=== PATIENT | female | born 1955 | race Caucasian/White ===

== ENCOUNTER 2022-08-06 18:26 | Inpatient (IN) | payer SELFPAY ==
[~2022-08-06] VITALS: Ht 124.5 cm; Wt 47.6 kg
[2022-08-06 18:45] VITALS: BP 140/71
[2022-08-06] MEDS: ONDANSETRON 4 MG ODT PO ONE (22:14)
[2022-08-06] MEDS: ALUMINUM HYD/MAG/SIMETHICONE 30 ML UDC PO ONE (22:14)
[2022-08-06 22:24] LABS: BASOPHILS % (AUTO) 0.2 % (0.0-2.0); EOSINOPHILS % (AUTO) 0.1 % (0.0-4.0); HEMATOCRIT 36.7 % (36-48); HEMOGLOBIN 13.2 g/dL (12.0-16.0); LYMPHOCYTES % (AUTO) 9.7 % (20.5-51.1); MEAN CORPUSCULAR HEMOGLOBIN 29 pg (27-31); MEAN CORPUSCULAR HGB CONC 36 g/dL (33-37); MEAN CORPUSCULAR VOLUME 79.6 fL (80-94); MONOCYTES # (AUTO) 0.6 K/uL (0.8-1.0); MONOCYTES % (AUTO) 5.6 % (1.7-9.3); NEUTROPHILS # (AUTO) 8.4 K/uL (1.8-7.7); NEUTROPHILS % (AUTO) 84.4 % (42.2-75.2); PLATELET COUNT (AUTO) 312 K/uL (140-450); RED CELL DISTRIBUTION WIDTH 13.2 % (11.6-13.7)
[2022-08-06 22:39] LABS: ALBUMIN 3.7 g/dL (3.4-5.0); CARBON DIOXIDE 25.4 mmol/L (21-32); CREATININE 0.6 mg/dL (0.6-1.3); POTASSIUM 3.4 mmol/L (3.5-5.1); TOTAL BILIRUBIN 0.6 mg/dL (0.0-1.0)
[2022-08-06] MEDS: NACL 0.9% 1,000 ML IV ONE (23:51)
[2022-08-07 04:00] VITALS: BP 118/82
[2022-08-07 06:08] LABS: ANION GAP 13.2 (8-16); CARBON DIOXIDE 26.6 mmol/L (21-32); CREATININE 0.7 mg/dL (0.6-1.3)
[2022-08-07 06:14] LABS: POTASSIUM 2.8 mmol/L (3.5-5.1)
[2022-08-07] MEDS ORDERED: DOCUSATE SODIUM 100 MG GELCAP PO PRN (07:40)
[2022-08-07] MEDS ORDERED: ONDANSETRON 4 MG/2 ML VIAL IVP PRN (07:40)
[2022-08-07] MEDS ORDERED: LORazepam 2 MG/ML VIAL IVP PRN (07:40)
[2022-08-07] MEDS ORDERED: MAG SULF 2000 MG/WATER PREMIX 50 ML IV PRN (07:40)
[2022-08-07] MEDS ORDERED: ZOLPIDEM 10 MG TAB PO PRN (07:40)
[2022-08-07] MEDS ORDERED: DEXTROSE 50% 50 ML SYR IVP PRN (07:40)
[2022-08-07] MEDS ORDERED: MORPHINE SULFATE 2 MG/ML SYR IVP PRN (07:40)
[2022-08-07] MEDS ORDERED: POTASSIUM CHLORIDE 10 MEQ TABER PO PRN (07:40)
[2022-08-07] MEDS ORDERED: ACETAMINOPHEN 325 MG TAB PO PRN (07:40)
[2022-08-07 08:00] VITALS: BP 135/71
[2022-08-07] MEDS: PANTOPRAZOLE 40 MG INJ VIAL IVP SCH (09:03)
[2022-08-07] MEDS: POTASSIUM CHLORIDE 40 MEQ, LIDOCAINE 1% 25 MG in NACL 0.9% 250 ML IV ONE (09:04)
[2022-08-07] MEDS: INSULIN LISPRO SLIDING SCALE 100 UNITS/ML VIAL SUBQ PRN (11:45)
[2022-08-07] MEDS: BLOOD GLUCOSE MONITORING 1 DEV DEV FS SCH (11:45)
== END 2022-08-07 16:40 | disposition left against medical advice (07) | DRG 392 ==
LOC: MED 18:26 → MMU 08-07 00:04 → MTU 08-07 01:31
PROVIDERS: ADMIT Family Medicine; ATTEND Family Medicine
DX: K29.70 Gastritis, unspecified, without bleeding (principal); E87.1 Hypo-osmolality and hyponatremia; I10 Essential (primary) hypertension; E11.9 Type 2 diabetes mellitus without complications; E78.5 Hyperlipidemia, unspecified; E78.00 Pure hypercholesterolemia, unspecified; E86.0 Dehydration; E83.51 Hypocalcemia; E87.6 Hypokalemia; Z20.822 Contact with and (suspected) exposure to COVID-19
CPT/HCPCS: 36415; 71045; 80048; 80053; 82948; 83690; 83930; 83935; 84300; 85025; 87081; 93005; 96360; 99285; C9113; J1815; J2001; J3480; J7030; Q0092; Q0162